=== PATIENT | female | born 1985 | race Caucasian/White ===

== ENCOUNTER 2016-06-10 15:39 | Observation (INO) | payer OTHER ==
[~2016-06-10] VITALS: Ht 170.2 cm; Wt 83.9 kg
[2016-06-10] MEDS ORDERED: PREN-380 PO (16:04)
[2016-06-10] MEDS ORDERED: ACETAMINOPHEN EXTRA STRENGTH 500 MG TAB PO PRN (17:25)
[2016-06-10 17:43] LABS: BASOPHILS # (AUTO) 0.1 K/uL (0.00-0.22); BASOPHILS % (AUTO) 0.9 % (0.0-2.0); EOSINOPHILS # (AUTO) 0.2 K/uL (0-0.4); EOSINOPHILS % (AUTO) 2.6 % (0.0-4.0); HEMATOCRIT 30.5 % (36-48); HEMOGLOBIN 10.3 g/dL (12.0-16.0); LYMPHOCYTES # (AUTO) 1.5 K/uL (2.5-16.5); LYMPHOCYTES % (AUTO) 19.7 % (20.5-51.1); MEAN CORPUSCULAR HEMOGLOBIN 29 pg (27-31); MEAN CORPUSCULAR HGB CONC 34 g/dL (33-37); MEAN CORPUSCULAR VOLUME 86 fL (80-94); MONOCYTES # (AUTO) 0.4 K/uL (0.8-1.0); MONOCYTES % (AUTO) 5.2 % (1.7-9.3); NEUTROPHILS # (AUTO) 5.6 K/uL (1.8-7.7); NEUTROPHILS % (AUTO) 71.6 % (42.2-75.2); PLATELET COUNT (AUTO) 338 K/uL (140-450); RED BLOOD CELL COUNT(AUTO) 3.56 MIL/uL (4.20-5.40); RED CELL DISTRIBUTION WIDTH 12.6 % (11.6-13.7); WHITE BLOOD COUNT (AUTO) 7.8 K/uL (4.8-10.8)
[2016-06-10 17:59] LABS: APPEARANCE,URINE CLEAR (CLEAR); BILIRUBIN,URINE NEGATIVE (NEGATIVE); BLOOD, URINE NEGATIVE (NEGATIVE); COLOR,URINE YELLOW (YELLOW); LEUKOCYTE ESTERASE ,URINE NEGATIVE (NEGATIVE); NITRITE, URINE NEGATIVE (NEGATIVE); PH,URINE 7.5 (5.0-9.0); PROTEIN,URINE NEGATIVE (NEGATIVE); UGLUCOSE NEGATIVE (NEGATIVE); UROBILINOGEN,URINE 0.2 EU/dL (0.2 - 1)
[2016-06-10 18:05] LABS: ALBUMIN 2.7 g/dL (3.4-5.0); ANION GAP 12.3 (8-16); CALCIUM 8.2 mg/dL (8.5-10.1); CARBON DIOXIDE 25.6 mmol/L (21-32); CREATININE 0.7 mg/dL (0.6-1.3); TOTAL BILIRUBIN 0.3 mg/dL (0.0-1.0); TOTAL PROTEIN, SERUM 6.5 g/dL (6.4-8.2)
[2016-06-10 18:08] LABS: PARTIAL THROMBOPLASTIN TIME 28.2 secs (22-35.6); PROTHROMBIN TIME 9.6 secs (10.8-13.4)
[2016-06-10 18:10] LABS: BACTERIA,URINE FEW /HPF (None Seen); RBC,URINE 0-3 /HPF (0-5); WBC,URINE 0-3 /HPF (0-5)
[2016-06-10 18:11] LABS: MUCUS,URINE 1+ /LPF (None Seen); URINE AMORPHOUS PHOSPHATES 1+ /HPF (None Seen)
[2016-06-10 18:15] LABS: POTASSIUM 2.9 mmol/L (3.5-5.1)
[2016-06-10] MEDS ORDERED: ACETAMINOPHEN EXTRA STRENGTH 500 MG TAB ONE (19:46)
[2016-06-10] MEDS ORDERED: MORPHINE SULFATE 10 MG/ML SYR IVP PRN (20:35)
[2016-06-10] MEDS: LACTATED RINGERS 1,000 ML IV SCH (21:27)
[2016-06-11] MEDS ORDERED: MORPHINE SULFATE 10 MG/ML SYR ONE ×2 (00:23→12:52)
[2016-06-11] MEDS: LACTATED RINGERS 1,000 ML IV SCH (02:00)
[2016-06-11] MEDS ORDERED: LACTATED RINGERS 1,000 ML IV SCH (07:05)
--- NOTE | 2016-06-11 07:12 | NUR ---
PATIENT HAS BEEN SCREENED AND CATEGORIZED MODERATE NUTRITION RISK. PATIENT WILL BE SEEN WITHIN 3-5 DAYS OF ADMISSION. 06/13/16-06/15/16 [facility] BERNAL MS, RDN
[2016-06-11] MEDS ORDERED: CYCLOBENZAPRINE 10 MG TAB PO SCH ×2 (15:15→19:00)
== END 2016-06-11 22:14 | disposition home or self-care (01) ==
LOC: MLD 15:39 → MFCC 22:12
PROVIDERS: ADMIT Obstetrics & Gynecology; ATTEND Obstetrics & Gynecology
DX: O26.899 Other specified pregnancy related conditions, unspecified trimester (principal); R10.9 Unspecified abdominal pain; Z3A.00 Weeks of gestation of pregnancy not specified
CPT/HCPCS: 36415; 59025; 76770; 76805; 80053; 81001; 85025; 85379; 85384; 85610; 85730; 96360; 96361; C1758; G0378; J2270; J7120; Q0092; 96374

== ENCOUNTER 2016-08-27 22:43 | Observation (INO) | payer OTHER ==
[~2016-08-27] VITALS: Ht 170.2 cm; Wt 90.7 kg
[~2016-08-27 22:43] MED LIST: PREN-380 PO
[2016-08-27] MEDS ORDERED: NALBUPHINE 10 MG/ML AMP IVP SCH (23:50)
[2016-08-27] MEDS ORDERED: LACTATED RINGERS 1,000 ML IV SCH (23:50)
[2016-08-28] MEDS: TERBUTALINE 1 MG/ML VIAL SUBQ SCH ×3 (00:33→02:40)
[2016-08-28 00:56] LABS: BASOPHILS # (AUTO) 0.1 K/uL (0.00-0.22); BASOPHILS % (AUTO) 0.6 % (0.0-2.0); EOSINOPHILS # (AUTO) 0.4 K/uL (0-0.4); EOSINOPHILS % (AUTO) 3.2 % (0.0-4.0); HEMATOCRIT 35.4 % (36-48); HEMOGLOBIN 11.8 g/dL (12.0-16.0); LYMPHOCYTES # (AUTO) 1.7 K/uL (2.5-16.5); LYMPHOCYTES % (AUTO) 14.9 % (20.5-51.1); MEAN CORPUSCULAR HEMOGLOBIN 29 pg (27-31); MEAN CORPUSCULAR HGB CONC 33 g/dL (33-37); MEAN CORPUSCULAR VOLUME 86 fL (80-94); MONOCYTES # (AUTO) 0.6 K/uL (0.8-1.0); MONOCYTES % (AUTO) 4.8 % (1.7-9.3); NEUTROPHILS # (AUTO) 8.8 K/uL (1.8-7.7); NEUTROPHILS % (AUTO) 76.5 % (42.2-75.2); PLATELET COUNT (AUTO) 315 K/uL (140-450); RED BLOOD CELL COUNT(AUTO) 4.11 MIL/uL (4.20-5.40); RED CELL DISTRIBUTION WIDTH 13.1 % (11.6-13.7); WHITE BLOOD COUNT (AUTO) 11.6 K/uL (4.8-10.8)
[2016-08-28 01:03] LABS: ANION GAP 16.3 (8-16); CALCIUM 8.7 mg/dL (8.5-10.1); CARBON DIOXIDE 21.8 mmol/L (21-32); CREATININE 0.6 mg/dL (0.6-1.3); POTASSIUM 3.1 mmol/L (3.5-5.1)
[2016-08-28 01:17] LABS: ALBUMIN 2.7 g/dL (3.4-5.0); TOTAL BILIRUBIN 0.5 mg/dL (0.0-1.0); TOTAL PROTEIN, SERUM 7.2 g/dL (6.4-8.2)
[2016-08-28 01:43] LABS: PARTIAL THROMBOPLASTIN TIME 28.5 secs (22-35.6); PROTHROMBIN TIME 9.4 secs (10.8-13.4)
[2016-08-28] MEDS ORDERED: TERBUTALINE 1 MG/ML VIAL SUBQ ONE (07:46)
[2016-08-28] MEDS ORDERED: BETAMETH ACET/BETAMETH NA PH 30 MG/5 ML VIAL IM ONE ×2 (07:46→18:58)
[2016-08-28] MEDS ORDERED: ACETAMINOPHEN 325 MG TAB ONE (08:10)
[2016-08-28] MEDS ORDERED: BETAMETH ACET/BETAMETH NA PH 30 MG/5 ML VIAL IM SCH (09:00)
[2016-08-28] MEDS: TERBUTALINE 2.5 MG TAB PO SCH ×3 (12:22→20:00)
[2016-08-28] MEDS ORDERED: TERBUTALINE 2.5 MG TAB ONE ×3 (12:26→20:04)
[2016-08-28] MEDS ORDERED: BRE5 PO (21:08)
== END 2016-08-28 21:15 | disposition home or self-care (01) ==
LOC: MLD 22:43
PROVIDERS: ADMIT Obstetrics & Gynecology; ATTEND Obstetrics & Gynecology
DX: O26.893 Other specified pregnancy related conditions, third trimester (principal); R10.9 Unspecified abdominal pain; Z3A.33 33 weeks gestation of pregnancy
CPT/HCPCS: 36415; 76805; 80053; 85025; 85379; 85384; 85610; 85730; 86592; 86703; 86886; 86900; 86901; 96372; 96374; G0378; J0702; J3105; J7120; Q0092

== ENCOUNTER 2016-10-10 07:04 | Inpatient (IN) | payer OTHER ==
[~2016-10-10] VITALS: Ht 170.2 cm; Wt 93.0 kg
[~2016-10-10 07:04] MED LIST changes: +BRE5 PO
[2016-10-10 08:10] VITALS: BP 119/84
[2016-10-10] MEDS ORDERED: LACTATED RINGERS 1,000 ML IV SCH (08:25)
[2016-10-10] MEDS ORDERED: CITRIC ACID/SODIUM CITRATE 30 ML UDC PO SCH (08:54)
[2016-10-10 09:02] LABS: BASOPHILS % (AUTO) 0.6 % (0.0-2.0); EOSINOPHILS # (AUTO) 0.3 K/uL (0-0.4); EOSINOPHILS % (AUTO) 3.5 % (0.0-4.0); HEMATOCRIT 35.2 % (36-48); HEMOGLOBIN 11.7 g/dL (12.0-16.0); LYMPHOCYTES # (AUTO) 1.4 K/uL (2.5-16.5); LYMPHOCYTES % (AUTO) 19.2 % (20.5-51.1); MEAN CORPUSCULAR HEMOGLOBIN 28 pg (27-31); MEAN CORPUSCULAR HGB CONC 33 g/dL (33-37); MEAN CORPUSCULAR VOLUME 85 fL (80-94); MONOCYTES # (AUTO) 0.3 K/uL (0.8-1.0); MONOCYTES % (AUTO) 4.6 % (1.7-9.3); NEUTROPHILS # (AUTO) 5.5 K/uL (1.8-7.7); NEUTROPHILS % (AUTO) 72.1 % (42.2-75.2); PLATELET COUNT (AUTO) 243 K/uL (140-450); RED BLOOD CELL COUNT(AUTO) 4.14 MIL/uL (4.20-5.40); RED CELL DISTRIBUTION WIDTH 13.4 % (11.6-13.7); WHITE BLOOD COUNT (AUTO) 7.5 K/uL (4.8-10.8)
[2016-10-10 09:04] LABS: APPEARANCE,URINE CLEAR (CLEAR); BILIRUBIN,URINE NEGATIVE (NEGATIVE); BLOOD, URINE 1+ (NEGATIVE); COLOR,URINE YELLOW (YELLOW); LEUKOCYTE ESTERASE ,URINE NEGATIVE (NEGATIVE); NITRITE, URINE NEGATIVE (NEGATIVE); PROTEIN,URINE TRACE (NEGATIVE); UGLUCOSE NEGATIVE (NEGATIVE)
[2016-10-10 09:12] LABS: BACTERIA,URINE FEW /HPF (None Seen); SQUAMOUS EPITHELIAL CELL,UR 0-3 (FEW) /LPF (0-3 (FEW)); WBC,URINE 0-2 /HPF (0-5)
[2016-10-10 09:28] LABS: ANION GAP 11.8 (8-16); CARBON DIOXIDE 25.6 mmol/L (21-32); CREATININE 0.7 mg/dL (0.6-1.3); POTASSIUM 3.4 mmol/L (3.5-5.1)
[2016-10-10 09:31] LABS: ALBUMIN 2.4 g/dL (3.4-5.0); TOTAL BILIRUBIN 0.5 mg/dL (0.0-1.0); TOTAL PROTEIN, SERUM 6.4 g/dL (6.4-8.2)
--- NOTE | 2016-10-10 09:58 | NUR ---
PATIENT HAS BEEN SCREENED AND CATEGORIZED LOW NUTRITION RISK. PATIENT WILL BE SEEN WITHIN 7 DAYS OF ADMISSION. 10/16/[address]
[2016-10-10] MEDS ORDERED: BUPIVACAINE-MPF 0.75% 10 ML VIAL INJ ONE (12:15)
[2016-10-10] MEDS ORDERED: MIDAZOLAM 2 MG/2 ML VIAL ONE (12:33)
[2016-10-10] MEDS ORDERED: MORPHINE PRES FREE 10 MG/10 ML AMP IV ONE (12:33)
[2016-10-10] MEDS ORDERED: OXYTOCIN 20 UNITS/LR PREMIX 1,000 ML IV SCH (12:58)
[2016-10-10] MEDS ORDERED: MEPERIDINE 25 MG/ML SYR IVP PRN (13:00)
[2016-10-10] MEDS ORDERED: NALOXONE 0.4 MG/ML VIAL IVP PRN ×3 (13:00)
[2016-10-10] MEDS ORDERED: ONDANSETRON 4 MG/2 ML VIAL IVP PRN ×2 (13:00)
[2016-10-10] MEDS ORDERED: HYDROmorphone 1 MG/ML AMP IVP PRN ×2 (13:00→15:40)
[2016-10-10] MEDS ORDERED: NALBUPHINE 10 MG/ML AMP IVP PRN (13:00)
[2016-10-10] MEDS ORDERED: diphenhydrAMINE 50 MG/ML VIAL IVP PRN ×2 (13:00)
[2016-10-10] MEDS ORDERED: diphenhydrAMINE 50 MG/ML VIAL ONE (15:35)
[2016-10-10] MEDS ORDERED: ONDANSETRON 4 MG/2 ML VIAL ONE (15:35)
[2016-10-10] MEDS ORDERED: OXYTOCIN 20 UNITS/LR PREMIX 1,000 ML IV ONE (15:35)
[2016-10-10] MEDS ORDERED: MEASLES, MUMPS, AND RUBELLA 1 VIAL SQVAC PRN (15:40)
[2016-10-10] MEDS: OXYTOCIN 20 UNITS/LR PREMIX 1,000 ML IV SCH (16:30)
[2016-10-11] MEDS: OXYTOCIN 20 UNITS/LR PREMIX 1,000 ML IV SCH ×2 (01:57→10:14)
[2016-10-11] MEDS: KETOROLAC 30 MG/ML VIAL IM/IVP SCH ×2 (05:56)
[2016-10-11 08:26] LABS: BASOPHILS % (AUTO) 0.3 % (0.0-2.0); EOSINOPHILS # (AUTO) 0.2 K/uL (0-0.4); HEMATOCRIT 28.9 % (36-48); HEMOGLOBIN 9.3 g/dL (12.0-16.0); LYMPHOCYTES # (AUTO) 1.2 K/uL (2.5-16.5); LYMPHOCYTES % (AUTO) 14.1 % (20.5-51.1); MEAN CORPUSCULAR HEMOGLOBIN 27 pg (27-31); MEAN CORPUSCULAR HGB CONC 32 g/dL (33-37); MEAN CORPUSCULAR VOLUME 85 fL (80-94); MONOCYTES # (AUTO) 0.4 K/uL (0.8-1.0); MONOCYTES % (AUTO) 4.4 % (1.7-9.3); NEUTROPHILS # (AUTO) 6.4 K/uL (1.8-7.7); NEUTROPHILS % (AUTO) 79.2 % (42.2-75.2); PLATELET COUNT (AUTO) 237 K/uL (140-450); RED CELL DISTRIBUTION WIDTH 13.8 % (11.6-13.7); WHITE BLOOD COUNT (AUTO) 8.2 K/uL (4.8-10.8)
[2016-10-11] MEDS: KETOROLAC 30 MG/ML VIAL IVP PRN (17:16)
[2016-10-12] MEDS: KETOROLAC 30 MG/ML VIAL IVP PRN ×2 (01:11→07:56)
[2016-10-12] MEDS ORDERED: BISACODYL 5 MG TABEC PO PRN (08:00)
[2016-10-12] MEDS ORDERED: DOCUSATE SODIUM 100 MG GELCAP PO PRN (08:00)
[2016-10-12] MEDS: ACETAMINOPHEN 325 MG TAB PO PRN (10:09)
[2016-10-12] MEDS: SIMETHICONE 80 MG TAB.CHEW PO PRN (16:01)
[2016-10-13] MEDS: ACETAMINOPHEN 325 MG TAB PO PRN (00:33)
[2016-10-13] MEDS: SIMETHICONE 80 MG TAB.CHEW PO PRN (00:34)
[2016-10-13] MEDS ORDERED: SODIUM PHOSPHATE 118 ML ENEM RC PRN (08:55)
[2016-10-13] MEDS: oxyCODONE/APAP 5/325 MG 1 TAB TAB PO PRN (14:04)
[2016-10-14] MEDS ORDERED: FERR-193 PO (11:34)
[2016-10-14] MEDS ORDERED: IBUP-1842 PO (11:35)
[2016-10-14] MEDS: oxyCODONE/APAP 5/325 MG 1 TAB TAB PO PRN (15:04)
== END 2016-10-14 19:50 | disposition home or self-care (01) | DRG 540 ==
LOC: MFCC 07:04 → MLD 07:35 → MFCC 16:58
PROVIDERS: ADMIT Obstetrics & Gynecology; ATTEND Obstetrics & Gynecology
PROC: 0UN90ZZ Release Uterus, Open Approach (ICD-10-PCS; 2016-10-10)
PROC: 10D00Z1 Extraction of Products of Conception, Low, Open Approach (ICD-10-PCS; principal; 2016-10-10 12:30)
PROC: 3E0234Z Introduction of Serum, Toxoid and Vaccine into Muscle, Percutaneous Approach (ICD-10-PCS; 2016-10-12)
PROC: 3E0234Z Introduction of Serum, Toxoid and Vaccine into Muscle, Percutaneous Approach (ICD-10-PCS; 2016-10-13)
DX: O34.211 Maternal care for low transverse scar from previous cesarean delivery (principal); E66.01 Morbid (severe) obesity due to excess calories; O99.214 Obesity complicating childbirth; F31.9 Bipolar disorder, unspecified; O99.344 Other mental disorders complicating childbirth; O99.824 Streptococcus B carrier state complicating childbirth; O09.A3 Supervision of pregnancy with history of molar pregnancy, third trimester; O99.89 Other specified diseases and conditions complicating pregnancy, childbirth and the puerperium; N73.6 Female pelvic peritoneal adhesions (postinfective); Z3A.38 38 weeks gestation of pregnancy; Z37.0 Single live birth; Z87.442 Personal history of urinary calculi; Z68.32 Body mass index [BMI] 32.0-32.9, adult; Z23 Encounter for immunization; Z87.891 Personal history of nicotine dependence; Z83.3 Family history of diabetes mellitus; Z80.42 Family history of malignant neoplasm of prostate; Z82.49 Family history of ischemic heart disease and other diseases of the circulatory system; Z84.1 Family history of disorders of kidney and ureter
CPT/HCPCS: 36415; 51702; 80053; 81001; 85025; 86592; 86886; 86900; 86901; 87081; 87086; 90707; 90715; J0690; J1200; J1885; J2250; J2270; J2405; J2590; J3490; J7060; J7120

== ENCOUNTER 2019-07-19 17:59 | Emergency (ER) | payer OTHER ==
[~2019-07-19] VITALS: Ht 170.2 cm; Wt 90.7 kg
[~2019-07-19 17:59] MED LIST changes: -BRE5 PO; +FERR-20 PO; +IBUP-1842 PO; -PREN-380 PO
--- NOTE | 2019-07-19 18:00 | NUR ---
PT BIBA to bed 05.
[2019-07-19 18:08] VITALS: BP 144/87
--- NOTE | 2019-07-19 18:08 | NUR ---
34 y/o f biba from home c/c chest pain x 1 week. per pt it has gotten progressively worse including with difficulty breathing/nausea. chest pain burning/tightness, 10/10 pain, sternum radiating to LUE. heart sounds s1,s2. room air 98%. pt not in respiratory distress. placed on monitor, oxygen 2L NC comfort, full fowlers. pt nka. hx bipolar, anxiety. rx xanax,promethazine,trilaptol. no v/d. side rail x1
--- NOTE | 2019-07-19 18:38 | NUR ---
rad at bedside
--- NOTE | 2019-07-19 19:19 | NUR ---
report given to aracely guzman for continuity of care
--- NOTE | 2019-07-19 19:20 | NUR ---
REPORT RECIVED FROM JOSE CARLOS ZACARIAS. CONTINUATION OF CARE.
[2019-07-19] MEDS ORDERED: fentaNYL 0.05 MG/ML VIAL NS ONE (19:45)
[2019-07-19] MEDS ORDERED: KETOROLAC 30 MG/ML VIAL IM ONE (19:45)
--- NOTE | 2019-07-19 19:59 | NUR ---
PT REFUSED PAIN MEDICATION AT THIS TIME. EDUCATION GIVEN FOR BENEFITS. PT UNDERSTOOD TEACHINGS AND STILL REFUSED MEDICATION.
[2019-07-19 20:04] VITALS: BP 138/82
--- NOTE | 2019-07-19 20:04 | NUR ---
Patient discharged with v/s stable. Written and verbal after care instructions given and explained. Patient alert, oriented and verbalized understanding of instructions. Ambulatory with steady gait. All questions addressed prior to discharge. ID band removed. Patient advised to follow up with PMD. Rx of lidocaine patch, naproxen given. Patient educated on indication of medication including possible reaction and side effects. Opportunity to ask questions provided and answered.
== END 2019-07-19 20:04 | disposition home or self-care (01) ==
LOC: MED 17:59
DX: R07.89 Other chest pain (principal); Z79.899 Other long term (current) drug therapy
CPT/HCPCS: 71045; 93005; 99283; J1885; J3010; Q0092; 96372; 99284

== ENCOUNTER 2023-05-21 10:27 | Emergency (ER) | payer OTHER ==
[~2023-05-21] VITALS: Ht 170.2 cm; Wt 93.9 kg
[2023-05-21 10:46] VITALS: BP 128/85; PULSE 77; RESP 20; TEMP 97.8; O2SAT 99
[2023-05-21 11:12] LABS: BASOPHILS % (AUTO) 0.5 % (0.0-2.0); EOSINOPHILS # (AUTO) 0.3 K/uL (0-0.4); EOSINOPHILS % (AUTO) 4.6 % (0.0-4.0); HEMATOCRIT 38.4 % (36-48); HEMOGLOBIN 13.2 g/dL (12.0-16.0); LYMPHOCYTES # (AUTO) 1.4 K/uL (2.5-16.5); LYMPHOCYTES % (AUTO) 19.6 % (20.5-51.1); MEAN CORPUSCULAR HEMOGLOBIN 29 pg (27-31); MEAN CORPUSCULAR HGB CONC 34 g/dL (33-37); MEAN CORPUSCULAR VOLUME 84.1 fL (80-94); MONOCYTES # (AUTO) 0.4 K/uL (0.8-1.0); MONOCYTES % (AUTO) 5.7 % (1.7-9.3); NEUTROPHILS # (AUTO) 4.8 K/uL (1.8-7.7); NEUTROPHILS % (AUTO) 69.6 % (42.2-75.2); PLATELET COUNT (AUTO) 320 K/uL (140-450); RED BLOOD CELL COUNT(AUTO) 4.57 MIL/uL (4.20-5.40); RED CELL DISTRIBUTION WIDTH 12.8 % (11.6-13.7); WHITE BLOOD COUNT (AUTO) 6.9 K/uL (4.8-10.8)
[2023-05-21 11:25] LABS: ANION GAP 10.5 (8-16); CALCIUM 8.9 mg/dL (8.5-10.1); CARBON DIOXIDE 29.4 mmol/L (21-32); CREATININE 0.9 mg/dL (0.6-1.3); POTASSIUM 3.9 mmol/L (3.5-5.1)
[2023-05-21] MEDS: ONDANSETRON 4 MG/2 ML VIAL IVP ONE (12:30)
[2023-05-21] MEDS: KETOROLAC 30 MG/ML VIAL IVP ONE (12:30)
[2023-05-21] MEDS: NACL 0.9% 1,000 ML IV ONE (12:30)
[2023-05-21 12:35] LABS: BILIRUBIN,URINE NEGATIVE (NEGATIVE); BLOOD, URINE 3+ (NEGATIVE); COLOR,URINE YELLOW (YELLOW); LEUKOCYTE ESTERASE ,URINE TRACE (NEGATIVE); PH,URINE 7.5 (5.0-9.0); PROTEIN,URINE TRACE (NEGATIVE); UGLUCOSE NEGATIVE (NEGATIVE)
[2023-05-21] MEDS ORDERED: cefTRIAXone 1,000 MG VIAL ONE (12:57)
[2023-05-21 13:04] LABS: RBC,URINE >100 /HPF (0-5); WBC,URINE 0-5 /HPF (0-5)
[2023-05-21 13:05] LABS: APPEARANCE,URINE HAZY (CLEAR); BACTERIA,URINE 1+ /HPF (None Seen); NITRITE, URINE POSITIVE (NEGATIVE); SQUAMOUS EPITHELIAL CELL,UR 20-50 /LPF (0-3 (FEW))
[2023-05-21] MEDS: MORPHINE SULFATE 4 MG/ML SYR IVP ONE ×2 (13:19→14:43)
[2023-05-21 13:48] LABS: LACTIC ACID 0.8 mmol/L (0.4-2.0)
[2023-05-21] MEDS: TAMSULOSIN 0.4 MG CAP PO SCH (14:16)
[2023-05-21] MEDS ORDERED: ACET-8905 PO (14:17)
[2023-05-21] MEDS ORDERED: ONDA-188 PO (14:17)
[2023-05-21] MEDS ORDERED: IBUP-2213 PO (14:17)
[2023-05-21] MEDS ORDERED: CEPH-588 PO (14:17)
[2023-05-21] MEDS ORDERED: TAMS0.4C96 PO (14:17)
[2023-05-21 14:50] VITALS: BP 128/81; PULSE 78; O2SAT 99
== END 2023-05-21 14:50 | disposition home or self-care (01) ==
LOC: MED 10:27
DX: N13.2 Hydronephrosis with renal and ureteral calculous obstruction (principal); K80.20 Calculus of gallbladder without cholecystitis without obstruction; N28.1 Cyst of kidney, acquired; Z98.890 Other specified postprocedural states; Z79.899 Other long term (current) drug therapy
CPT/HCPCS: 36415; 74176; 80048; 81001; 81025; 83605; 85025; 87040; 87086; 96361; 96365; 96375; 96376; 99285; J0696; J1885; J2270; J2405; J7030

== ENCOUNTER 2023-08-31 07:50 | Emergency (ER) | payer OTHER ==
[~2023-08-31] VITALS: Ht 170.2 cm; Wt 90.7 kg
[~2023-08-31 07:50] MED LIST changes: +ACET-8905 PO; +CEPH-588 PO; +IBUP-2213 PO; +ONDA-188 PO; +TAMS0.4C96 PO
[2023-08-31 07:59] VITALS: BP 132/89; PULSE 82; RESP 18; TEMP 97.3; O2SAT 98
[2023-08-31 08:28] LABS: BILIRUBIN,URINE NEGATIVE (NEGATIVE); BLOOD, URINE 3+ (NEGATIVE); COLOR,URINE YELLOW (YELLOW); LEUKOCYTE ESTERASE ,URINE 2+ (NEGATIVE); NITRITE, URINE NEGATIVE (NEGATIVE); PROTEIN,URINE 2+ (NEGATIVE); UGLUCOSE NEGATIVE (NEGATIVE); UROBILINOGEN,URINE 0.2 EU/dL (0.2 - 1)
[2023-08-31 08:30] LABS: APPEARANCE,URINE CLOUDY (CLEAR)
[2023-08-31 08:43] LABS: BACTERIA,URINE 1+ /HPF (None Seen); RBC,URINE >20 (MANY) /HPF (0-5); SQUAMOUS EPITHELIAL CELL,UR 0-3 (FEW) /LPF (0-3 (FEW)); WBC,URINE >25 (MANY) /HPF (0-5)
[2023-08-31 08:51] LABS: BASOPHILS % (AUTO) 0.5 % (0.0-2.0); EOSINOPHILS # (AUTO) 0.4 K/uL (0-0.4); EOSINOPHILS % (AUTO) 5.6 % (0.0-4.0); HEMATOCRIT 37.1 % (36-48); HEMOGLOBIN 12.8 g/dL (12.0-16.0); LYMPHOCYTES # (AUTO) 1.3 K/uL (2.5-16.5); LYMPHOCYTES % (AUTO) 19.4 % (20.5-51.1); MEAN CORPUSCULAR HEMOGLOBIN 29 pg (27-31); MEAN CORPUSCULAR HGB CONC 35 g/dL (33-37); MEAN CORPUSCULAR VOLUME 84.3 fL (80-94); MONOCYTES # (AUTO) 0.4 K/uL (0.8-1.0); MONOCYTES % (AUTO) 6.1 % (1.7-9.3); NEUTROPHILS # (AUTO) 4.7 K/uL (1.8-7.7); NEUTROPHILS % (AUTO) 68.4 % (42.2-75.2); PLATELET COUNT (AUTO) 295 K/uL (140-450); RED CELL DISTRIBUTION WIDTH 12.9 % (11.6-13.7); WHITE BLOOD COUNT (AUTO) 6.9 K/uL (4.8-10.8)
[2023-08-31] MEDS: KETOROLAC 30 MG/ML VIAL IVP ONE (08:52)
[2023-08-31] MEDS: ONDANSETRON 4 MG/2 ML VIAL IVP ONE (08:54)
[2023-08-31] MEDS: NACL 0.9% 1,000 ML IV SCH (08:54)
[2023-08-31 09:03] LABS: ANION GAP 12.2 (8-16); CALCIUM 8.9 mg/dL (8.5-10.1); CREATININE 1.1 mg/dL (0.6-1.3); POTASSIUM 3.2 mmol/L (3.5-5.1)
[2023-08-31 09:09] LABS: ALBUMIN 3.7 g/dL (3.4-5.0); BILIRUBIN,DIRECT 0.1 mg/dL (0.0-0.3); TOTAL BILIRUBIN 0.5 mg/dL (0.0-1.0); TOTAL PROTEIN, SERUM 7.3 g/dL (6.4-8.2)
[2023-08-31 09:12] LABS: LACTIC ACID 1.5 mmol/L (0.4-2.0)
[2023-08-31] MEDS ORDERED: cefTRIAXone 1,000 MG VIAL ONE (09:30)
[2023-08-31] MEDS ORDERED: CEPH-588 PO (10:15)
[2023-08-31] MEDS ORDERED: ACET-8905 PO (10:15)
[2023-08-31] MEDS ORDERED: TAMS0.4C96 PO (10:15)
[2023-08-31] MEDS ORDERED: ONDA-188 PO (10:15)
[2023-08-31] MEDS: MORPHINE SULFATE 2 MG/ML SYR IVP ONE (10:30)
[2023-08-31 10:35] VITALS: BP 132/89; PULSE 82; RESP 18; TEMP 97.3; O2SAT 98
[2023-09-03] MEDS ORDERED: NITR100C7 PO (12:41)
== END 2023-08-31 10:35 | disposition home or self-care (01) ==
LOC: MED 07:50
DX: N39.0 Urinary tract infection, site not specified (principal); N23 Unspecified renal colic; R03.0 Elevated blood-pressure reading, without diagnosis of hypertension; Z98.890 Other specified postprocedural states; Z79.2 Long term (current) use of antibiotics; Z79.1 Long term (current) use of non-steroidal anti-inflammatories (NSAID); Z79.899 Other long term (current) drug therapy
CPT/HCPCS: 36415; 80048; 80076; 81001; 81025; 83605; 83690; 85025; 87040; 87086; 96361; 96365; 96375; 99284; J0696; J1885; J2270; J2405; J7030

== ENCOUNTER 2023-09-04 12:56 | Emergency (ER) | payer OTHER ==
[~2023-09-04] VITALS: Ht 170.2 cm; Wt 88.0 kg
[~2023-09-04 12:56] MED LIST changes: +NITR100C7 PO
[2023-09-04 13:20] VITALS: BP 146/84; PULSE 77; RESP 19; TEMP 97.9; O2SAT 99
[2023-09-04] MEDS ORDERED: IBUP-2213 PO (15:26)
[2023-09-04] MEDS: KETOROLAC 60 MG/2 ML VIAL IM ONE (16:28)
[2023-09-04 16:33] VITALS: BP 131/89; PULSE 74; RESP 18; TEMP 98.5; O2SAT 99
== END 2023-09-04 16:33 | disposition home or self-care (01) ==
LOC: MED 12:56
DX: R07.89 Other chest pain (principal); R20.0 Anesthesia of skin; R53.1 Weakness; Z79.899 Other long term (current) drug therapy; Z98.890 Other specified postprocedural states
CPT/HCPCS: 70450; 81002; 81025; 82948; 93005; 96372; 99285; J1885